=== PATIENT | female | born 1995 | race Caucasian/White ===

== ENCOUNTER 2021-08-27 17:24 | Emergency (ER) | payer OTHER ==
[~2021-08-27] VITALS: Ht 167.6 cm; Wt 79.5 kg
[2021-08-27 20:00] VITALS: BP 128/71; PULSE 68; TEMP 97.9
== END 2021-08-27 20:00 | disposition home or self-care (01) ==
LOC: COL.ER 17:24
DX: G43.909 Migraine, unspecified, not intractable, without status migrainosus (principal); Z20.822 Contact with and (suspected) exposure to COVID-19
CPT/HCPCS: J1885; J2550; J2765; J7030